=== PATIENT | male | born 1995 | race Caucasian/White ===

== ENCOUNTER 2016-04-03 01:12 | Emergency (ER) | payer OTHER ==
[~2016-04-03] VITALS: Ht 182.9 cm; Wt 64.0 kg
[2016-04-03 02:10] VITALS: BP 119/71
== END 2016-04-03 02:15 | disposition home or self-care (01) ==
LOC: ED 01:15
DX: S01.81XA Laceration without foreign body of other part of head, initial encounter (principal); S50.812A Abrasion of left forearm, initial encounter; S40.812A Abrasion of left upper arm, initial encounter; V28.0XXA Motorcycle driver injured in noncollision transport accident in nontraffic accident, initial encounter; Y92.410 Unspecified street and highway as the place of occurrence of the external cause
CPT/HCPCS: 99281; 99283